=== PATIENT | male | born 1990 | race Caucasian/White ===

== ENCOUNTER → 2024-09-03 06:20 | Day surgery (SDC) | payer OTHER, SELFPAY | LOC: GI 06:20 | PROVIDERS: ATTENDING PHYSICIAN Internal Medicine Gastroenterology | DX: K22.89 Other specified disease of esophagus (principal); R13.10 Dysphagia, unspecified; K29.50 Unspecified chronic gastritis without bleeding; K20.0 Eosinophilic esophagitis | CPT/HCPCS: 43239; 88305; 88312; 88342 ==